=== PATIENT | male | born 1985 | race Caucasian/White ===

== ENCOUNTER 2019-03-24 13:54 | Emergency (ER) | payer OTHER ==
[~2019-03-24] VITALS: Ht 185.4 cm; Wt 61.7 kg
--- NOTE | 2019-03-24 14:30 | NUR ---
brisa humphries and denise rankin lvn at bedside to examine the pt.
--- NOTE | 2019-03-24 14:40 | NUR ---
Patient discharged to home in stable conditon. Written and verbal after care instructions given. Patient verbalizes understanding of instructions.pt walks i nsteady gait.
== END 2019-03-24 14:44 | disposition home or self-care (01) ==
LOC: ER 13:54
DX: S30.813A Abrasion of scrotum and testes, initial encounter (principal); W26.8XXA Contact with other sharp object(s), not elsewhere classified, initial encounter; Y93.89 Activity, other specified; Y92.89 Other specified places as the place of occurrence of the external cause; Y99.8 Other external cause status
CPT/HCPCS: A4663